=== PATIENT | female | born 1995 | race Hispanic/Latino ===

== ENCOUNTER 2017-07-11 18:15 | Emergency (ER) | payer OTHER | END 2017-07-11 19:34 | disposition home or self-care (01) | LOC: M ED 18:15 | DX: J02.9 Acute pharyngitis, unspecified (principal) | CPT/HCPCS: 87880 ==

== ENCOUNTER 2017-11-11 06:44 | Day surgery (SDC) | payer OTHER ==
[2017-11-11] MEDS ORDERED: PROPOFOL 200 MG/20 ML VIAL As Ordered ×2 (07:06)
[2017-11-11] MEDS: NS 1,000 ML IV (07:06)
[2017-11-11] MEDS ORDERED: LIDOCAINE 2% INJ 100 MG/5 ML SDV (FOR ANES.) As Ordered (07:06)
== END 2017-11-11 08:59 | disposition home or self-care (01) ==
LOC: M OPP 06:44
DX: K92.1 Melena (principal); K63.89 Other specified diseases of intestine; K52.9 Noninfective gastroenteritis and colitis, unspecified; K64.8 Other hemorrhoids; Q43.8 Other specified congenital malformations of intestine; R11.10 Vomiting, unspecified; Z79.899 Other long term (current) drug therapy; Z80.0 Family history of malignant neoplasm of digestive organs
CPT/HCPCS: 45380